=== PATIENT | male | born 1985 | race Two or more races ===

== ENCOUNTER 2017-11-17 08:27 | Outpatient (CLI) | payer OTHER ==
[~2017-11-17 08:27] MED LIST: ACIDOPHILUS1 EAC3 PO; AMOX1TAB12 PO; DEXAMETHASONE0.5 MG; GAVISCON LIQUI355 ML; GILTUSS COUGH-118 ML; LEVAQUIN500 MG; LIPITOR; LIPITOR20 MG; NORVASC; NORVASC2.5 MG; OMEPRAZOLE40 MG; RANITIDINE HCL300 M1; RELAGESIC 5001 EACH PO; TUSSI PRES-B L120 M1 PO
== END 2017-11-17 08:38 | disposition home or self-care (01) ==
LOC: LAB 08:27
DX: I10 Essential (primary) hypertension (principal); E11.9 Type 2 diabetes mellitus without complications; E03.8 Other specified hypothyroidism; E78.2 Mixed hyperlipidemia; M81.0 Age-related osteoporosis without current pathological fracture

== ENCOUNTER 2018-02-17 07:50 | Outpatient (CLI) | payer OTHER | END 2018-02-17 07:54 | disposition home or self-care (01) | LOC: SONOGRAMA 07:50 | DX: R10.84 Generalized abdominal pain (principal) ==

== ENCOUNTER 2018-05-22 13:41 | Outpatient (CLI) | payer OTHER | END 2018-05-22 15:06 | disposition home or self-care (01) | LOC: MRI 13:41 | DX: L03.116 Cellulitis of left lower limb (principal) | CPT/HCPCS: 73718 ==

== ENCOUNTER 2019-02-04 21:02 | Emergency (ER) | payer OTHER ==
[~2019-02-04] VITALS: Ht 180.3 cm; Wt 90.7 kg
[2019-02-05] MEDS ORDERED: ZITHROMAX500 MG PO (01:52)
== END 2019-02-05 01:58 | disposition home or self-care (01) ==
LOC: ER 21:02
DX: B96.0 Mycoplasma pneumoniae [M. pneumoniae] as the cause of diseases classified elsewhere (principal); B34.9 Viral infection, unspecified

== ENCOUNTER 2019-02-09 09:45 | Outpatient (CLI) | payer OTHER ==
[~2019-02-09 09:45] MED LIST changes: +ZITHROMAX500 MG PO
== END 2019-02-09 09:51 | disposition home or self-care (01) ==
LOC: SONOGRAMA 09:45
DX: K72.00 Acute and subacute hepatic failure without coma (principal); R10.84 Generalized abdominal pain

== ENCOUNTER 2019-02-09 10:35 | Outpatient (CLI) | payer OTHER | END 2019-02-09 10:47 | disposition home or self-care (01) | LOC: LAB 10:35 | DX: K72.00 Acute and subacute hepatic failure without coma (principal) ==

== ENCOUNTER 2021-07-30 11:11 | Outpatient (CLI) | payer OTHER | END 2021-07-30 11:20 | disposition home or self-care (01) | LOC: RAD 11:11 | DX: M79.641 Pain in right hand (principal); M25.531 Pain in right wrist; M25.511 Pain in right shoulder ==

== ENCOUNTER 2024-02-22 05:17 | Emergency (ER) | payer OTHER ==
[~2024-02-22] VITALS: Ht 180.3 cm; Wt 97.5 kg
[2024-02-22] MEDS ORDERED: LOSARTAN-HCTZ1 EACH (05:26)
[2024-02-22] MEDS ORDERED: HYOSCYAMINE SULFATE 0.125 MG TAB.SUBL SL STA (05:43)
[2024-02-22 06:02] LABS: HEMATOCRIT 47.2 % (39.0-48.0); HEMOGLOBIN 16.4 g/dL (13-16.00); MEAN CELL VOLUME 86.2 fL (80.0-100.00); MEAN CORPUSCULAR HEMOGLOBIN 29.9 pg (27.00-32.0); MEAN CORPUSCULAR HGB CONC 34.7 g/dl (32.0-36.0); PLATELET COUNT 370 K/uL (150-450); RED BLOOD COUNT 5.47 M/uL (4.00-6.00); RED CELL DISTRIBUTION WIDTH 16.5 % (11.5-14.5)
== END 2024-02-22 08:00 | disposition home or self-care (01) ==
LOC: ER 05:18
DX: R10.9 Unspecified abdominal pain (principal); K29.70 Gastritis, unspecified, without bleeding; Z88.6 Allergy status to analgesic agent; K59.01 Slow transit constipation

== ENCOUNTER 2024-08-04 04:15 | Emergency (ER) | payer OTHER ==
[~2024-08-04] VITALS: Ht 180.3 cm; Wt 99.8 kg
[~2024-08-04 04:15] MED LIST changes: +LOSARTAN-HCTZ1 EACH
[2024-08-04 04:33] VITALS: O2SAT 96
[2024-08-04] MEDS ORDERED: ACETAMINOPHEN 500 MG GEL..CAP PO STA (04:43)
[2024-08-04] MEDS ORDERED: NIFEDIPINE 10 MG CAPSULE PO STA (04:44)
[2024-08-04] MEDS ORDERED: NIFEDIPINE 10 MG CAPSULE PO ONE (04:45)
[2024-08-04] MEDS ORDERED: ACETAMINOPHEN 500 MG GEL..CAP PO ONE (04:45)
[2024-08-04] MEDS ORDERED: LOSARTAN-HCTZ1 EACH PO (05:56)
[2024-08-04 06:02] VITALS: BP 130/80
== END 2024-08-04 06:03 ==
LOC: ER 04:18
DX: I10 Essential (primary) hypertension (principal); Z88.6 Allergy status to analgesic agent

== ENCOUNTER 2024-11-24 10:17 | Outpatient (CLI) | payer OTHER ==
[~2024-11-24 10:17] MED LIST changes: +LOSARTAN-HCTZ1 EACH PO
== END 2024-11-24 10:22 | disposition home or self-care (01) ==
LOC: SONOGRAMA 10:17
PROVIDERS: ATTEND Internal Medicine Cardiovascular Disease
DX: I15.9 Secondary hypertension, unspecified (principal); I11.9 Hypertensive heart disease without heart failure

== ENCOUNTER 2025-03-02 16:24 | Emergency (ER) | payer OTHER ==
[~2025-03-02] VITALS: Ht 180.3 cm; Wt 95.3 kg
[2025-03-02 16:38] VITALS: BP 139/89; O2SAT 96
[2025-03-02] MEDS ORDERED: ROSUVASTATIN CAL5 MG PO (16:38)
[2025-03-02] MEDS ORDERED: DEXAMETHASONE SODIUM PHOSP/PF 10 MG/ML VIAL IV ONE (17:15)
[2025-03-02] MEDS ORDERED: ORPHENADRINE CITRATE 30 MG/ML AMPUL IV ONE (17:15)
[2025-03-02] MEDS ORDERED: ACETAMINOPHEN 500 MG GEL..CAP PO ONE ×2 (17:15→17:36)
[2025-03-02] MEDS ORDERED: 0.9 % SODIUM CHLORIDE 1,000 ML IV SCH (17:30)
[2025-03-02] MEDS ORDERED: ORPHENADRINE CITRATE 30 MG/ML AMPUL ONE (17:36)
[2025-03-02] MEDS ORDERED: DEXAMETHASONE SODIUM PHOSPHATE 4 MG/ML VIAL ONE ×2 (17:37→19:58)
[2025-03-02 19:34] LABS: BASO % 0.5 % (0.1-1.2); EOS # 0.25 (0.04-0.54); EOS % 2.8 % (0.7-7.0); LYMPH # 2.86 (1.18-3.74); LYMPH % 32.2 % (19.3-53.1); MEAN PLATELET VOLUME 9.70 fl (9.4-12.4); MONO # 0.58 (0.24-0.82); MONO % 6.5 % (4.7-12.5); NEUT # 5.13 (1.56-6.13); NEUT % 57.9 % (34.0-71.1); RED CELL DISTRIBUTION WIDTH 12.4 % (11.6-14.4)
[2025-03-02 20:03] LABS: URINE APPEARANCE Clear; URINE BILIRRUBIN Negative (NEGATIVE); URINE BLOOD Negative; URINE COLOR Yellow; URINE GLUCOSE Negative (NEGATIVE); URINE KETONE Negative (NEGATIVE); URINE LEUKOCYTE Negative; URINE NITRATE Negative; URINE PROTEIN Negative (NEGATIVE); URINE UROBILINOGEN 0.2 E.U./dl
[2025-03-02 20:04] LABS: ALT/SGPT 77.0 U/L (12-78); AST/SGOT 27.0 U/L (15-37); BILIRUBIN TOTAL 0.3 mg/dL (0.3-1.2); BUN CREA RATIO 15.0 (7.0-25.0); CREATININE SERUM 1.02 mg/dL (0.70-1.30); GFR 80.48; GLOBULINA 3.8 G/DL (2.4-3.5); GLUCOSE FASTING 98.0 mg/dL (65-100); OSMOLALITY SERUM 282.0 MOSM/KG (275-295)
[2025-03-02 20:07] LABS: URINE RBC 2.0 uL (0.0-20.8); URINE WBC 2.8 uL (0.0-23.2)
[2025-03-02 20:11] LABS: URINE BACTERIA 1.1 uL (0.0-1933); URINE CAST 0.00 uL (0.0-1.40); URINE EPITHELIAL CELLS 0.9 uL (0.0-38.8)
[2025-03-02] MEDS ORDERED: NORFLEX100MG PO (22:43)
[2025-03-02] MEDS ORDERED: LIDOCAINE PAIN1 EACH TD (22:43)
[2025-03-02] MEDS ORDERED: TYLENOL ARTHRI650 MG PO (22:43)
== END 2025-03-02 22:48 | disposition home or self-care (01) ==
LOC: ER 16:24
PROVIDERS: Student in an Organized Health Care Education/Training Program
DX: M62.838 Other muscle spasm (principal); M54.50 Low back pain, unspecified; I10 Essential (primary) hypertension; Z88.6 Allergy status to analgesic agent
CPT/HCPCS: 36415; 74177; Q9965